=== PATIENT | female | born 1945 | race Caucasian/White ===

== ENCOUNTER 2020-07-28 11:22 | Outpatient (REF) | payer MEDICARE, SELFPAY ==
[2020-07-28 13:11] LABS: Anion Gap 12 (12-20); Blood Urea Nitrogen 15 mg/dL (9-16); Calcium 9.7 mg/dL (8.4-10.2); Carbon Dioxide 29 mmol/L (22-29); Chloride 103 mmol/L (96-108); Estimated Glomerular Filt Rate > 60; Glucose Random 84 mg/dL (60-115); Potassium 4.2 mmol/l (3.3-5.1); Sodium 140 mmol/L (135-145)
[2020-07-28 13:33] LABS: Thyroid Stimulating Hormone 3.39 mIU/mL (0.32-4.0); Vitamin D 25-OH Total 54.8 ng/mL (>30)
[2020-07-28 14:37] LABS: Folate 18.9 ng/mL (> or = 4.0); Vitamin B12 318 pg/mL (200-900)
== END 2020-07-28 11:23 | disposition home or self-care (01) ==
LOC: HO.LABR 11:22
PROVIDERS: PCP Internal Medicine; Visit Provider Psychiatry & Neurology Neurology
DX: G31.84 Mild cognitive impairment of uncertain or unknown etiology (principal)
CPT/HCPCS: 36415; 80048; 82306; 82607; 82746; 84443

== ENCOUNTER 2022-02-07 10:00 | Outpatient (RCR) | payer OTHER, SELFPAY | END 2022-02-07 10:50 | disposition home or self-care (01) | LOC: HO.PT 10:00 | PROVIDERS: PCP Internal Medicine; Visit Provider Podiatrist Foot & Ankle Surgery | DX: S99.921D Unspecified injury of right foot, subsequent encounter (principal); Z98.890 Other specified postprocedural states | CPT/HCPCS: 97110; 97112; 97162 ==

== ENCOUNTER 2022-04-15 12:10 | Outpatient (REF) | payer OTHER, SELFPAY ==
[2022-04-15 12:32] VITALS: BP 145/67; PULSE 81; RESP 16; TEMP 36.3; O2SAT 100
[2022-04-15 12:33] VITALS: BMI 28.3
== END 2022-04-15 12:11 | disposition home or self-care (01) ==
LOC: HO.MS 12:10
PROVIDERS: Visit Provider Ophthalmology
PROC: (CPT 66821; principal; 2022-04-15 13:20)
DX: H26.491 Other secondary cataract, right eye (principal); Z96.1 Presence of intraocular lens; H11.003 Unspecified pterygium of eye, bilateral; H04.123 Dry eye syndrome of bilateral lacrimal glands; I10 Essential (primary) hypertension; E78.00 Pure hypercholesterolemia, unspecified; E03.9 Hypothyroidism, unspecified; F03.90 Unspecified dementia, unspecified severity, without behavioral disturbance, psychotic disturbance, mood disturbance, and anxiety; J30.2 Other seasonal allergic rhinitis; Z79.51 Long term (current) use of inhaled steroids; Z79.899 Other long term (current) drug therapy
CPT/HCPCS: 66821

== ENCOUNTER 2024-01-09 10:25 | Outpatient (REF) | payer MEDICARE, SELFPAY | END 2024-01-09 10:26 | disposition home or self-care (01) | LOC: HO.SH 10:25 | PROVIDERS: PCP Internal Medicine; Visit Provider Internal Medicine | DX: Z01.118 Encounter for examination of ears and hearing with other abnormal findings (principal); H90.A21 Sensorineural hearing loss, unilateral, right ear, with restricted hearing on the contralateral side | CPT/HCPCS: 92557; 92567 ==

== ENCOUNTER 2025-06-01 13:43 | Outpatient (AMB) | payer MEDICARE, MEDICAID, SELFPAY ==
--- NOTE | 2025-06-01 14:11 | MHC.OFFVIS ---
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 Memory was about the same, forgetful at times and needed some reminders, like to take medications and to bathe. 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 She enjoyed being outdoors, planting and gardening. No falls. Sleep was okay. Mood was up and down. She could get upset at times, especially when reminded of something or told what to do. She did not want to leave the house much and was not interested in going to day program. More dependent on sister (Leah). Has cameras in the house. Does not try to wander. She has been living with her younger sister since 1991. Her sister noted she was more forgetful beginning around 2018. She gets agitated if she is told to bathe or cut nails. She has not had sense of smell since around [id number] and therefore that becomes a safety issue. No bladder control problems. No history of falls, balance problems, or head trauma. In the past, she was treated for overactive thyroid with radiation and is on replacement therapy. Occasionally screams at night and has no recall, goes back to sleep. [facility] Medical History (Updated 06/01/25 @ 14:16 by Katy Ashraf CNP) Hypertension MCI (mild cognitive impairment) Review of Systems Const Denies chills, Denies daytime sleepiness, Denies difficulty sleeping, Denies fatigue, Denies fever(s), Denies frequent falls, Denies headache(s), Denies increased appetite, Denies poor appetite, Denies snoring, Denies weakness, Denies weight gain and Denies weight loss Eyes Denies loss of vision ENT Denies vertigo, Denies dizziness, Denies headache(s) and Denies neck pain Card Denies chest pain at rest, Denies chest pain with activity, Denies syncope, Denies leg edema, Denies palpitations, Denies dyspnea and Denies dyspnea on exertion Resp Denies cough, Denies dyspnea, Denies dyspnea on exertion and Denies snoring GI Denies abdominal pain, Denies constipation, Denies heartburn, Denies diarrhea and Denies nausea Denies urinary frequency, Denies urinary incontinence and Denies urinary urgency Musc Denies abnormal gait, Denies back pain, Denies myalgias, Denies arthralgias, Denies neck pain, Denies numbness and Denies tingling Neuro Denies abnormal gait, Denies vertigo, Denies dizziness, Denies syncope, Denies frequent falls, Denies headache(s), Denies lack of coordination, Denies loss of vision, Reports memory loss, Denies numbness, Denies Other visual disturbances, Denies restless legs, Denies seizure-like activity, Denies tingling, Denies paresthesias, Denies tremor(s) and Denies weakness Psych Denies anxiety, Denies depression, Denies auditory hallucinations, Reports memory loss and Denies visual hallucinations Endo Denies fatigue and Denies palpitations Physical Exam Const Other: General Appearance:? normal, in no acute distress. Heart:? S1, S2 normal, no murmurs. Lungs:? clear anteriorly and posteriorly. Musculoskeletal:? normal. Extremities:? no edema. Psych:? alert, as below. Neuro Other: Abnormal Neurological Findings:?MMSE 19/30.? Mental Status: alert, as below. Cranial Nerves: Pupils are equal, round, and reactive to light. External ocular muscles are intact. Visual maldonado are full, no ptosis. Face is symmetrical, no facial weakness or droop. Facial sensations are normal. Tongue protrudes in midline. Palate elevates symmetrically. Shoulder shrugging is normal Motor Examination: Normal muscle tone, bulk and strength. No atrophy or fasciculations. No drift of the extended upper extremities. DTR 2+. Plantars are flexor. Sensory Exam: Normal light touch, temperature, pinprick, vibration, and joint-position sensations. Rhomberg sign is absent. Coordination: No ataxia. No titubation. Gait Exam: Within normal limits. Cerebellar Signs: [id number] is okay. Extrapyramidal System: No tremor, rigidity with normal facial expressions. No bradykinesia. No bradyphrenia. Normal arm swing and posture. No propulsion or retropulsion. Speech: Normal. MMSE Level of Consciousness: Alert. Orientation: Knows correct month and season. Does not know year, date, or day. Knows correct city and state. Does not know county. Knows correct location. Does not know floor. Registration: Able to register 3 objects. Attention: Unable to do serial 7's (has 2nd grade education). Recall: Able to recall 2 out of 3 objects. Language: Normal spontaneous speech, fluency, repetition, naming, comprehension, reading, and writing. Total Score: 19/30. Assessment & Plan Assessment & Plan (1) Alzheimer dementia: Code(s): G30.9 - Alzheimer's disease, unspecified; F02.80 - Dementia in other diseases classified elsewhere, unspecified severity, without behavioral disturbance, psychotic disturbance, mood disturbance, and anxiety Category: Medical Qualifiers: Alzheimer's disease onset: unspecified onset Dementia severity: unspecified severity Dementia behavioral or psychological symptom: with mood disturbance Qualified Code(s): G30.9 - Alzheimer's disease, unspecified; F02.83 - Dementia in other diseases classified elsewhere, unspecified severity, with mood disturbance Plan: Continue memantine 10mg 1 tablet twice a day. Increase sertraline 50mg 1 tablet daily. Stay physically and socially active. Plan Meds tried: donepezil Medications: New sertraline 50 mg PO DAILY 90 tabs 1RF 90 days memantine 10 mg PO BID 180 tabs 1RF 90 days Discontinued memantine Discontinued Reason: Order 10 mg PO BID Coding Level of Care Code Est Pt Level 4 (11543) Diagnoses Alzheimer's dementia with mood disturbance, unspecified dementia severity, unspecified timing of dementia onset G30.9; F02.83 Alzheimer's disease onset: unspecified onset Dementia severity: unspecified severity Dementia behavioral or psychological symptom: with mood disturbance
--- OUTSIDE RECORDS SUMMARY | 2025-06-01 14:11 | XMS_ITS | Clinical Summary ---
Author Organization [facility] [address] [facility] Address [address] [place] [address] Phone Care Team Providers Care Neurosurgery Spine Physician Name Role Phone Sadia Ferreira MD Primary Care Prov ider Allergies Active Allergy Reactions Criticality Noted Date Comments Other 01/24/2022 Seasonal Allergies Medications acetaminophen (TYLENOL) 325 mg tablet Take 2 tablets (650 mg total) by mouth every 6 (six) hours if needed for mild pain or moderate pain (for up to 10 days.). 07/26/20 21 Active fluticasone propionate (FLONASE) 50 mcg/actuation nasal spray 2 Sprays by Each Nare route daily. 01/25/20 22 Active memantine (NAMENDA) 10 mg tablet 08/21/20 21 Active docusate sodium (Colace) 100 mg capsule Take 1 capsule (100 mg total) by mouth 2 (two) times a day. 60 each 09/08/20 24 Active polyethylene glycol (MIRALAX) 17 gram packet Take 17 g by mouth 1 (one) time each day. 510 g 09/08/20 24 025 Active senna-docusate (PERICOLACE) 8.6-50 mg per tablet Take 1 tablet by mouth 1 (one) time each day. 30 each 09/08/20 24 025 Active pantoprazole (PROTONIX) 40 mg EC tablet Take 1 tablet (40 mg total) by mouth 2 (two) times a day. Take thyroid medication first in am. Wait 30 mins and then take on empty stomach, wait 30 mins and then eat to activate the medication- before breakfast and supper 60 each 09/08/20 24 Active levothyroxine (SYNTHROID, LEVOTHROID) 125 mcg tablet Take 0.5 tablets (62.5 mcg total) by mouth 1 (one) time each day. 45 each 05/19/20 25 026 Active metoprolol tartrate (LOPRESSOR) 25 mg tablet TAKE ONE TABLET BY MOUTH TWICE DAILY (ic lopressor) 180 tablet 05/19/20 25 Active simvastatin (ZOCOR) 40 mg tablet Take 1 tablet (40 mg total) by mouth at bedtime. 90 each 05/19/20 026 Active cholecalcifero l (VITAMIN D-3) 5,000 Units tablet Take 1 tablet (5,000 Units total) by mouth 1 (one) time each day. 90 each 05/19/20 026 Active cholecalcifero l (VITAMIN D-3) 5,000 Units tablet Take 1 tablet (5,000 Units total) by mouth 1 (one) time each day. 10/06/20 025 Discontinued(Re order) famotidine (PEPCID) 20 mg tablet Take 1 tablet (20 mg total) by mouth 2 (two) times a day. 10/06/20 025 Discontinued(Th erapy completed) simvastatin (ZOCOR) 40 mg tablet Take 1 tablet (40 mg total) by mouth at bedtime. at bedtime 90 tablet 02/16/20 025 Discontinued levothyroxine (SYNTHROID, LEVOTHROID) 125 mcg tablet Take 0.5 tablets (62.5 mcg total) by mouth 1 (one) time each day. 45 tablet 02/16/20 025 Discontinued metoprolol tartrate (LOPRESSOR) 25 mg tablet TAKE ONE TABLET BY MOUTH TWICE DAILY (ic lopressor) 180 tablet 02/16/20 25 025 Discontinued metoprolol tartrate (LOPRESSOR) 25 mg tablet TAKE ONE TABLET BY MOUTH TWICE DAILY (ic lopressor) 180 tablet 05/11/20 25 025 Discontinued(Re order) levothyroxine (SYNTHROID, LEVOTHROID) 125 mcg tablet Take 0.5 tablets (62.5 mcg total) by mouth 1 (one) time each day. 45 tablet 05/11/20 25 025 Discontinued(Re order) simvastatin (ZOCOR) 40 mg tablet TAKE 1 TABLET (40 MG TOTAL) BY MOUTH AT BEDTIME. 90 tablet 05/11/20 25 025 Discontinued(Re order) Active Problems Problem Noted Date Diagnosed Date Stage 3a chronic kidney disease ([facility] V24, CM S/[facility] V28) 11/18/2024 Gastroesophageal reflux disease 07/30/2024 Assessment & Plan (11/18/2024 9:46 AM EST): Orders: CBC and differential; Future Mild cognitive impairment with memory loss 12/22 Assessment & Plan (11/18/2024 9:46 AM EST): Orders: CBC and differential; Future Allergic rhinitis 05/17/2013 Heartburn 06/11/2012 Hypothyroidism 08/13/2010 Assessment & Plan (05/19/2025 10:14 AM EDT): On levothyroxine 62.5 mcg a day, last TSH wnl. Will continue same dose. Orders: CBC and differential; Future Comprehensive metabolic panel; Future Lipid panel with reflex to direct LDL; Future Thyroid stimulating hormone with reflex to free t4 and free t3; Future Assessment & Plan (11/18/2024 9:46 AM EST): Orders: CBC and differential; Future Thyroid stimulating hormone; Future Vitamin deficiency 11/02/2009 Depression 10/19/2009 HTN (hypertension) 10/19/2009 Assessment & Plan (05/19/2025 10:08 AM EDT): Blood pressure is well controlled, today 123/60, continue metoprolol 25 mg twice daily. Orders: CBC and differential; Future Comprehensive metabolic panel; Future Lipid panel with reflex to direct LDL; Future Thyroid stimulating hormone with reflex to free t4 and free t3; Future Assessment & Plan (11/18/2024 9:46 AM EST): Orders: CBC and differential; Future Hyperlipidemia 10/19/2009 Overview (07/30/2024): Mild elevation of LFTs. Statin was held for 2 weeks and liver function testing returned to normal. Restarted on lower dose. Assessment & Plan (05/19/2025 10:14 AM EDT): On simvastatin for high cholesterol, last LDL was 83. We will continue same medication. Encouraged to follow a low fat diet. Orders: CBC and differential; Future Comprehensive metabolic panel; Future Lipid panel with reflex to direct LDL; Future Thyroid stimulating hormone with reflex to free t4 and free t3; Future Assessment & Plan (11/18/2024 9:46 AM EST): Orders: Comprehensive metabolic panel; Future CBC and differential; Future Lipid panel with reflex to direct LDL; Future Encounters Date Type Department Care Team Description 05/19/2025 9:30 AM EDT Office Visit Adult Medicine [address] [phone] Sadia Madsen MD Primary hypertension (Primary Dx); Hyperlipidemia, unspecified hyperlipidemia type; Hypothyroidism, unspecified type from Last 3 Months Immunizations Name Administration Dates Next Due Influenza Quadravalent, MDCK , 0.5ml, preservative free (Flucelvax) 6mo and older 10/06/2023 Influenza Quadravalent, MDCK , 0.5ml, with preservative (Flucelvax) 6mo and older 09/17/2021,07/28/2017 Influenza trivalent, 0.5mL ( Fluzone High-dose) 65yo and older 07/15/2022,09/29/2020,08/04/2019,07/17 Influenza trivalent, with pr eservative (Fluzone; Afluria) 6mo and older 09/10/2016,11/18/2012,10/25/2011,08/10 Influenza, Unspecified 08/26/2021 Pneumococcal conjugate 13 va lent (Prevnar 13, PCV13) 2mo and older 09/10/2016 Pneumococcal polysaccharide 23 valent (Pneumovax 23) 2yo and older 11/01/2009 Td Tetanus diptheria (Tdvax) 7yo and older 02/20/2021 Tdap Tetanus diptheria acell ular pertussis (Boostrix; Adacel) 7yo and older 11/01/2009 Surgical History Surgery Date Site/Laterality Comments COLONOSCOPY 12/19/2009 PROCEDURE: VT COLONOSCOPY FLX DX W/COLLJ SPEC WHEN PFRMD; COMMENT: Up to cecum, good preparation, normal colon exam Medical History Medical History Date Comments Hypercholesteremia DX:Hyperchole steremia Depression DX:Depression; C OMMENT: previously on Prozac. HTN (hypertension) DX:HTN (hyper tension) Hyperthyroidism DX:Hyperthyroidi sm; COMMENT: s/p radiactive ablation Gastroesophageal reflux disease 07/06/2024 DX:Gastroesophageal reflux disease Family History Medical History Relation Name Comments Diabetes Brother 1 kidney failure Diabetes Brother 2 kidney failure, CAD Leukemia Brother 3 Lung disease Brother 4 Coronary artery disease Brother 5 Glaucoma Father brain tumor Diabetes Maternal Grandfather with co mplications Asthma Maternal Grandmother Diabetes Mother Breast cancer Other maternal aunt No Known Problems Sister x 3 health y sisters Relation Name Status Comments Brother 1 Brother 2 Brother 3 Brother 4 Brother 5 Alive Father Maternal Grandfather Maternal Grandmother Mother Other Sister Alive Social History Tobacco Use Types Packs/Day Years Used Date Smoking Tobacco: Never Smokeless Tobacco: Never Tobacco Cessation:Counseling Given: Not Answered Alcohol Use Standard Drinks/Week Comments No 0 (1 standard drink = 0.6 oz pur e alcohol) Comments No Sex and Gender Information Value Date Recorded Sex Assigned at Not on file Legal Sex Female 2:11 AM EST Gender Identity Not on file Sexual Orientation Not on file Obstetrics History Para Term AB IAB SAB Ectopic Multiple Livin g Live Births 0 0 0 Last Filed Vital Signs Vital Sign Reading Time Taken Comments Blood Pressure 123/60 05/19/2025 9:37 AM EDT Pulse 72 05/19/2025 9:37 AM EDT Temperature 36.1 C (97 F) 05/19/2025 9:37 AM EDT Respiratory Rate 16 05/19/2025 9:37 AM EDT Oxygen Saturation 96% 09/08/2024 10:14 AM EST Inhaled Oxygen Concentration - - Weight 71.2 kg (157 lb) 05/19/2025 9:37 AM EDT Height 160 cm (5' 3 ) 11/18/2024 9:07 AM EST Body Mass Index 27.81 11/18/2024 9:07 AM EST Plan of Treatment Upcoming Encounters Date Type Department Care Team (Late st Contact Info) Description 12/19/2025 11:30 AM EST Office Visit Adult Medicine [facility] [address] [place] [address] Sadia Ferreira MD [address] [place] [phone] Health Maintenance Due Date Last Done Comments Zoster Vaccines (1 of 2) 1964 RSV Immunization Adult Patients (1 - 1-dose 75+ series) 2019 Influenza Vaccine (#1) 2025 , 10/06/2023, 07/15/2022, Additional history exists Falls Risk Assessment 11/18/2025 11/18/2024, 024 Hypertension/CHF/CAD Annual BMP Blood Test 11/18/2025 11/18/2024, 07/06/2024 Medicare Annual Wellness Visit 11/18/2025 11/18/2024 Social Influencers of Health Screening 11/18/2025 11/18/2024 Osteoporosis Screening (Bone Density Screening) 11/17/2029 11/17/2024, 08/18/2018 Cholesterol Screening (Lipid Panel) 11/18/2029 11/18/2024, 07/06/2024, 07/06/2024 DTaP,Tdap,and Td Vaccines (3 - Td or Tdap) 02/20/2031 02/20/2021, 11/01/2009 Pneumococcal Vaccine: 50+ Years Completed 09/10/2016, 11/01/2009 COVID-19 Vaccine Discontinued 08/21/2021, 10/2020, 12/04/2020 Depression Screening Completed 11/18/2024, 10/06/20 23 HIB Vaccines Aged Out No longer eligi ble based on patient's age to complete this topic HPV Vaccines Aged Out No longer eligi ble based on patient's age to complete this topic Hepatitis A Vaccines Aged Out No long er eligible based on patient's age to complete this topic Hepatitis B Vaccines Aged Out No long er eligible based on patient's age to complete this topic IPV Vaccines Aged Out No longer eligi ble based on patient's age to complete this topic MMR Vaccines Aged Out No longer eligi ble based on patient's age to complete this topic Meningococcal ACWY Vaccine Aged Out N o longer eligible based on patient's age to complete this topic Meningococcal B Vaccine Aged Out No l onger eligible based on patient's age to complete this topic RSV Immunization Patients Under 20 months Aged Out No longer eligible based on patient's age to complete this topic Varicella Vaccines Aged Out No longer eligible based on patient's age to complete this topic Procedures Procedure Name Priority Date/Time Associated Diagnosis Comments COMPREHENSIVE METABOLIC PANEL Routine 11/18/2024 10:16 AM EST Adult general medical examination Hyperlipidemia, unspecified hyperlipidemia type LIPID PANEL WITH REFLEX TO DIRECT LDL Routine 11/18/2024 10:16 AM EST Adult general medical examination Hyperlipidemia, unspecified hyperlipidemia type BD BONE DENSITY DXA AXIAL SKELETON Routine 11/17/2024 10:14 AM EST Asymptomatic menopausal state FALLS RISK ASSESSMENT Routine 07/06/2024 DEPRESSION SCREENING Routine 10/06/2023 from Last 3 Months or Most Recently Relevant to Health Maintenance Results * Lipid panel with reflex to direct LDL (11/18/2024 10:16 AM EST) Cholesterol 182 0 - 200 mg/dL LAB CHEMISTRY METHOD 11/18/2024 12:08 PM EST [facility] Triglycerides 108 0 - 150 mg/dL LAB CHEMISTRY METHOD 11/18/2024 12:08 PM EST [facility] HDL 77 >=40 mg/dL LAB CHEMISTRY METHOD 11/18/2024 12:08 PM EST [facility] LDL Calculated 83 0 - 100 mg/dL LAB CHEMISTRY METHOD 11/18/2024 12:08 PM EST [facility] VLDL Cholesterol Dieter 21.6 mg/dL LAB CHEMISTRY METHOD 11/18/2024 12:08 PM [facility] Non HDL Chol. (LDL+VLDL) 105 <145 mg/dL LAB CHEMISTRY METHOD 11/18/2024 12:08 PM [facility] Chol/HDL Ratio 2.4 0.0 - 4.4 LAB CHEMISTRY METHOD 11/18/2024 12:08 PM [facility] Blood Venous blood specimen / Unknown Venipuncture / Unknown 11/18/2024 10:16 AM EST 11/18/2024 10:16 AM EST Zita RAE LAB BLOOD ORDERABLES Final Resul t [facility] [address] [place] [address], [place] [phone] * (ABNORMAL) Comprehensive metabolic panel (11/18/2024 10:16 AM EST) Sodium 138 133 - 145 mmol/L LAB CHEMISTRY METHOD 11/18/2024 12:08 PM [facility] Potassium 4.5 3.5 - 5.5 mmol/L LAB CHEMISTRY METHOD 11/18/2024 12:08 PM [facility] Chloride 106 96 - 110 mmol/L LAB CHEMISTRY METHOD 11/18/2024 12:08 PM [facility] CO2 29 21 - 32 mmol/L LAB CHEMISTRY METHOD 11/18/2024 12:08 PM [facility] Anion Gap 3 3 - 11 LAB CHEMISTRY METHOD 11/18/2024 12:08 PM [facility] Glucose 94 70 - 100 mg/dL LAB CHEMISTRY METHOD 11/18/2024 12:08 PM [facility] BUN 22 5 - 25 mg/dL LAB CHEMISTRY METHOD 11/18/2024 12:08 PM [facility] Creatinine 1.13(H) 0.50 - 1.10 mg/dL LAB CHEMISTRY METHOD 11/18/2024 12:08 PM [facility] eGFR 49(L) >=60 mL/min/1. 73m2 LAB CHEMISTRY METHOD 11/18/2024 12:08 PM [facility] Comment:Calculation based on the Chronic Kidney Disease Epidemiology Collaboration (CKD-EPI) equation refit without adjustment for race. BUN/Creatinine Ratio 19.5 LAB CHEMISTRY METHOD 11/18/2024 12:08 PM [facility] Calcium 9.4 8.5 - 10.5 mg/dL LAB CHEMISTRY METHOD 11/18/2024 12:08 PM [facility] AST (SGOT) 24 10 - 42 unit/L LAB CHEMISTRY METHOD 11/18/2024 12:08 PM [facility] ALT (SGPT) 25 10 - 60 unit/L LAB CHEMISTRY METHOD 11/18/2024 12:08 PM [facility] Alkaline Phosphatase 75 42 - 121 unit/L LAB CHEMISTRY METHOD 11/18/2024 12:08 PM [facility] Total Protein 7.6 6.0 - 8.0 g/dL LAB CHEMISTRY METHOD 11/18/2024 12:08 PM [facility] Albumin 4.1 3.2 - 5.0 g/dL LAB CHEMISTRY METHOD 11/18/2024 12:08 PM [facility] Total Bilirubin 0.4 0.0 - 1.4 mg/dL LAB CHEMISTRY METHOD 11/18/2024 12:08 PM [facility] Blood Venous blood specimen / Unknown Venipuncture / Unknown 11/18/2024 10:16 AM EST 11/18/2024 10:16 AM EST us Zita RAE LAB BLOOD ORDERABLES Final Resul t [facility] [address] [place] [address], * BD Bone Density DXA Axial Skeleton (11/17/2024 10:14 AM EST) Anatomical Region Laterality Modality Wrist, Hip, L-spine Bone Densito metry 11/17/2024 1:34 PM EST Impressions 11/17/2024 1:37 PM EST Osteopenia Reference Information: The T-score is the number of standard deviations above or below the standard which is normal for young adults at their peak bone mineral density. The World Health Organization (WHO) interprets the T-scores as follows: At or above -1 SD Normal bone density Between -1 and -2.5 SD Osteopenia At or below -2.5 SD Osteoporosis -------- FINAL REPORT -------- Dictated By: Leon Negron Dictated Date: 11/17/2024 13:34 ET Assigned Physician: Leon Negron Reviewed and Electronically Signed By: Leon Negron Signed Date: 11/17/2024 13:37 ET Workstation ID: [id number] Transcribed By: Self Edit Transcribed Date: 11/17/2024 13:34 ET Narrative 11/17/2024 1:37 PM EST STUDY: DUAL ENERGY X-RAY ABSORPTIOMETRY / DXA REASON FOR EXAM: Female, 79 years old Z78.0 TECHNIQUE: Bone Mineral Density (BMD) measurements of the lumbar spine and left hip were obtained using [employer] W (S/N [id number]). COMPARISON: August 18, 2018 FINDINGS: L1-L4 BMD: 0.893 g/cm2 L1-L4 T score: -1.4. This corresponds to osteopenia. This represents a 6.0* % increase in bone density compared with prior exam from August 18, 2018. Left femoral neck BMD: 0.671 g/cm2 Left femoral neck T score: -1.6. This corresponds to osteopenia. Left total hip BMD: 0.767 g/cm2 Left total hip T score: -1.4. This corresponds to osteopenia. This represents a -0.1 % decrease in bone density compared with prior exam from August 18, 2018. * - Indicates a statistically significant change. FRAX score: 10 year risk of major osteoporotic fracture 8.3%, 10 year risk of hip fracture 2.1% Procedure Note Leon Negron MD - 11/17/2024 STUDY: DUAL ENERGY X-RAY ABSORPTIOMETRY / DXA REASON FOR EXAM: Female, 79 years old Z78.0 TECHNIQUE: Bone Mineral Density (BMD) measurements of the lumbar spineand left hip were obtained using [employer] W (S/N [id number]). COMPARISON: August 18, 2018 FINDINGS: L1-L4 BMD: 0.893 g/cm2 L1-L4 T score: -1.4. This corresponds to osteopenia. This represents a 6.0* % increase in bone density compared with prior examfrom August 18, 2018. Left femoral neck BMD: 0.671 g/cm2 Left femoral neck T score: -1.6. This corresponds to osteopenia. Left total hip BMD: 0.767 g/cm2 Left total hip T score: -1.4. This corresponds to osteopenia. This represents a -0.1 % decrease in bone density compared with prior examfrom August 18, 2018. * - Indicates a statistically significant change. FRAX score: 10 year risk of major osteoporotic fracture 8.3%, 10 year riskof hip fracture 2.1% IMPRESSION: Osteopenia Reference Information: The T-score is the number of standard deviations above or below thestandard which is normal for young adults at their peak bone mineraldensity. The World Health Organization (WHO) interprets the T-scores asfollows: At or above -1 SD Normal bone density Between -1 and -2.5 SD Osteopenia At or below -2.5 SD Osteoporosis -------- FINAL REPORT -------- Dictated By: Leon Negron Dictated Date: 11/17/2024 13:34 ET Assigned Physician: Leon Negron Reviewed and Electronically Signed By: Leon Negron Signed Date: 11/17/2024 13:37 ET Workstation ID: [id number] Transcribed By: Self Edit Transcribed Date: 11/17/2024 13:34 ET Stephanie RAE IMG DXA PROCEDURES Final Result * Falls Risk Assessment (07/06/2024) Falls Risk Assessment Abstracted Historical Provider MD HEALTH MAINTENANCE Final Result * Depression Screening (10/06/2023) Depression Screening Abstracted Historical Provider HEALTH MAINTENANCE Final Result from Last 3 Months or Most Recently Relevant to Health Maintenance [place] [address] [employer] [employer] Care Teams Neurosurgery Spine Physician Relationship Specialty Start Date End Date Sadia Ferreira MD [address] [place] [address] [phone] PCP - General Internal Medicine 05/03/22
== END 2025-06-01 14:36 | disposition home or self-care (01) ==
LOC: HO.HSM 13:44
PROVIDERS: PCP Internal Medicine; Referring Provider Internal Medicine; Visit Provider Registered Nurse
DX: G30.9 Alzheimer's disease, unspecified (principal); F02.83 Dementia in other diseases classified elsewhere, unspecified severity, with mood disturbance
CPT/HCPCS: 99214

== ENCOUNTER → 2025-06-01 13:43 | Outpatient (BNVA) | payer MEDICARE, SELFPAY | PROVIDERS: PCP Internal Medicine; Referring Provider Internal Medicine; Visit Provider Registered Nurse | DX: G30.9 Alzheimer's disease, unspecified (principal); F02.83 Dementia in other diseases classified elsewhere, unspecified severity, with mood disturbance | CPT/HCPCS: 99212 ==

== ENCOUNTER 2025-08-31 13:36 | Outpatient (AMB) | payer MEDICARE, SELFPAY ==
--- NOTE | 2025-08-31 13:44 | A.OFFVIS_ITS ---
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 Memory was about the same, forgetful at times and needed some reminders. She sometimes needed reminders to take medications and to bathe. 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 No falls. Mood was better with increased dose of sertraline. She could get upset at times if she was told what to do. Sleep was okay. She went to [place] with her sister to visit family and they were going to [place] for [place]. More dependent on sister (Leah). Has cameras in the house. Does not try to wander. She has been living with her younger sister since 1991. Her sister noted she was more forgetful beginning around 2018. She gets agitated if she is told to bathe or cut nails. She has not had sense of smell since around [id number] and therefore that becomes a safety issue. No bladder control problems. No history of falls, balance problems, or head trauma. In the past, she was treated for overactive thyroid with radiation and is on replacement therapy. Occasionally screams at night and has no recall, goes back to sleep. [facility] Medical History (Updated 06/01/25 @ 14:16 by Katy Ashraf CNP) Hypertension MCI (mild cognitive impairment) Review of Systems Const Denies chills, Denies daytime sleepiness, Denies difficulty sleeping, Denies fatigue, Denies fever(s), Denies frequent falls, Denies headache(s), Denies increased appetite, Denies poor appetite, Denies snoring, Denies weakness, Denies weight gain and Denies weight loss Eyes Denies loss of vision ENT Denies vertigo, Denies dizziness, Denies headache(s) and Denies neck pain Card Denies chest pain at rest, Denies chest pain with activity, Denies syncope, Denies leg edema, Denies palpitations, Denies dyspnea and Denies dyspnea on exertion Resp Denies cough, Denies dyspnea, Denies dyspnea on exertion and Denies snoring GI Denies abdominal pain, Denies constipation, Denies heartburn, Denies diarrhea and Denies nausea Denies urinary frequency, Denies urinary incontinence and Denies urinary urgency Musc Denies abnormal gait, Denies back pain, Denies myalgias, Denies arthralgias, Denies neck pain, Denies numbness and Denies tingling Neuro Denies abnormal gait, Denies vertigo, Denies dizziness, Denies syncope, Denies frequent falls, Denies headache(s), Denies lack of coordination, Denies loss of vision, Reports memory loss, Denies numbness, Denies Other visual disturbances, Denies restless legs, Denies seizure-like activity, Denies tingling, Denies paresthesias, Denies tremor(s) and Denies weakness Psych Denies anxiety, Denies depression, Denies auditory hallucinations, Reports m jazmyne loss and Denies visual hallucinations Endo Denies fatigue and Denies palpitations Physical Exam Const Other: General Appearance:? normal, in no acute distress. Heart:? S1, S2 normal, no murmurs. Lungs:? clear anteriorly and posteriorly. Musculoskeletal:? normal. Extremities:? no edema. Psych:? alert, as below. Neuro Other: Abnormal Neurological Findings:?MMSE 19/30.? Mental Status: alert, as below. Cranial Nerves: Pupils are equal, round, and reactive to light. External ocular muscles are intact. Visual maldonado are full, no ptosis. Face is symmetrical, no facial weakness or droop. Facial sensations are normal. Tongue protrudes in midline. Palate elevates symmetrically. Shoulder shrugging is normal Motor Examination: Normal muscle tone, bulk and strength. No atrophy or fasciculations. No drift of the extended upper extremities. DTR 2+. Plantars are flexor. Sensory Exam: Normal light touch, temperature, pinprick, vibration, and joint-position sensations. Rhomberg sign is absent. Coordination: No ataxia. No titubation. Gait Exam: Within normal limits. Cerebellar Signs: [id number] is okay. Extrapyramidal System: No tremor, rigidity with normal facial expressions. No bradykinesia. No bradyphrenia. Normal arm swing and posture. No propulsion or retropulsion. Speech: Normal. MMSE Level of Consciousness: Alert. Orientation: Knows correct month and season. Does not know year, date, or day. Knows correct city and state. Does not know county. Knows correct location. Does not know floor. Registration: Able to register 3 objects. Attention: Unable to do serial 7's (has 2nd grade education). Recall: Able to recall 2 out of 3 objects. Language: Normal spontaneous speech, fluency, repetition, naming, comprehension, reading, and writing. Total Score: 19/30. Results Reviewed Results Reviewed: 07/28/20 EEG- [facility] normal CT brain not approved by insurance Assessment & Plan Assessment & Plan (1) Alzheimer dementia: Code(s): G30.9 - Alzheimer's disease, unspecified; F02.80 - Dementia in other diseases classified elsewhere, unspecified severity, without behavioral disturbance, psychotic disturbance, mood disturbance, and anxiety Category: Medical Qualifiers: Alzheimer's disease onset: unspecified onset Dementia severity: unspecified severity Dementia behavioral or psychological symptom: with mood disturbance Qualified Code(s): G30.9 - Alzheimer's disease, unspecified; F02.83 - Dementia in other diseases classified elsewhere, unspecified severity, with mood disturbance Plan: Continue memantine 10mg 1 tablet twice a day. Continue sertraline 50mg 1 tablet daily. Stay physically and socially active. Plan Meds tried: donepezil Coding Level of Care Code Est Pt Level 4 (23280) Diagnoses Alzheimer's dementia with mood disturbance, unspecified dementia severity, unspecified timing of dementia onset G30.9; F02.83 Alzheimer's disease onset: unspecified onset Dementia severity: unspecified severity Dementia behavioral or psychological symptom: with mood disturbance
--- OUTSIDE RECORDS SUMMARY | 2025-08-31 16:30 | XMS_ITS | Data Portability ---
Author Organization [facility], Allergy Address [address] [place] [phone] Care Team Providers Care Assistant Attorney General Name Role Phone SINGH ARDON Primary Care Provider Assessment Encounter Date Assessment Date Assessment LastModified by Organization Details LastModified Time 07/23/2024 07/23/2024 Examination shows no evidence of middle ear fluid. 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 Options of exploration with surgical intervention or hearing aid discussed. She would like to try the hearing aid first. [email or web address] Not available 07/23/2024 16:06:04 Plan of Treatment Reminders Order Date Submit Date Provider Last Modified By Organization Details Last Modified Time Details Appointments None record ed. Lab None record ed. Referral None record ed. Procedures None record ed. Surgeries None record ed. Imaging None record ed. Medication Orders None record ed. Patient TargetsNo targets recorded. Patient InstructionsNo instructions recorded. Reason for Referral None Reported. Results Created Date Observation Date Name Description Value Unit Range Abnormal Flag Note LastModifiedBy Organization Detail LastModifiedTime 07/26/2001/09/2024 audio gram No observ ation record ed. [email or web address] Not Available 06/29 13:16:35 07/26/20 audio gram No observ ation record ed. BARCODE Not Available 2023 14:48:06 Result Notes None recorded. 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 15:50:59 Problem Notes None recorded. Procedures Surgical History Date Name Laterality Status Provider Name and Address Organization Details Recorded Time Comp Audio with Tymps & Reflexes - 40517 & 05920 completed Amairani Emanuel MA - [facility] 07/23/2024 15:50:45 Imaging Results None recorded. Procedure Notes None recorded. Medical Equipment None Reported. Allergies No known drug allergies Medications Name Sig Start Date Stop Date Status Note LastModified by Organization Details LastModified Time vitamin d3 5000 unit tabs active Not Available Not Available No t Available simvastatin 40 mg tablet active Not Available Not Available No t Available famotidine 20 mg tablet active Not Available Not Available Not Available benzonatate 100 mg capsule 07/23 completed Not Available Not Available Not Available levothyroxine 125 mcg tablet active Not Available Not Availab le Not Available doxycycline hyclate 100 mg tablet 07/23 completed Not Available Not Available Not Available memantine 10 mg tablet active Not Available Not Available Not Available metoprolol tartrate 25 mg tablet active Not Available Not Available Not Available cholecalciferol (vitamin D3) 125 mcg (5,000 unit) tablet 07/23 completed Not Available Not Available Not Available Vitals Date Recorded Body height Body weight Provider Name and Address Organization Details Last Updated DateTime 07/23/2024 165.1 cm 16963.82 g Alia Ahuja MA - [facility] 07/23/2024 15:03:11 Social History None recorded. Functional Status None recorded. Mental Status None recorded. Family History Nothing Reported. Medical History Condition Response Thyroid Problems Y Hypertension Y GERD/Reflux Y High Cholesterol Y Gynecological HistoryNo gynecological history recorded. Obstetrics History GPAL:G 0 P 0 0 0 0 Past Encounters Encounter ID Performer Location Encounter Start Date Encounter Closed Date Diagnosis/Indication Diagnosis SNOMED-CT Code Diagnosis ICD10 Code Diagnosis IMO Codes Diagnosis Note [id number] JANKI SOLOMON MD [facility] [address] [id number] 07/23/2024 14:28:40 07/23/2024 16:11:38 Mixed conductive and sensorineural hearing loss of left ear [id number] H90.A32 Audiologic al evaluation results:Ri ght ear:Normal sloping to moderately severe sensorineu ral hearing loss with no measurable word recognitio n.Left ear:Mild sloping to profound mixed hearing loss with no measurable word recognitio n.SRT and WRS could not be measured due to language barriers. Tympanomet ry:Right Ear:Type ALeft Ear:Type Ad Acoustic Reflex Testing: Signal to theRight Ear(crosse d):Absent Signal to theRight Ear(uncros sed): Normal Signal to theLeft Ear(crosse d):Abnorma l Signal to theLeft Ear(uncros sed):Abnor mal Health Concerns Section Related Observation LastModified by Organization Detai ls LastModified Time None Recorded Concern Status LastModified by Organization Details LastModified Time None Recorded Advance Directives Directive None Recorded Payers Insurance Date Sequence Insurance Name Policy Number Policy Saenz Covered Member ID Saenz Member ID Guarantor Name 12/08/2024 1 [facility] (HMO) Alana Saloni Saloni [id number] Alana Saloni 07/23/2024 1 MEDICARE [place]: [employer] Alana Saloni [id number] Alana Saloni Notes Date Note Type Note Provider Name and Address Organization Details Recorded Time 07/23/2024 text/html 1 year of left sided tinnitus and mixed HL. Concerned about the beeping noise . Seen with sister Shikha ELIZONDO MD [address] [place] [address], [phone], [facility] - [facility] 07/23/2024 16:07:12 OBGyn Episode No OBEpisode recorded.
== END 2025-08-31 14:13 | disposition home or self-care (01) ==
LOC: HO.HSM 13:37
PROVIDERS: PCP Internal Medicine; Visit Provider Registered Nurse
DX: G30.9 Alzheimer's disease, unspecified (principal); F02.83 Dementia in other diseases classified elsewhere, unspecified severity, with mood disturbance
CPT/HCPCS: 99214

== ENCOUNTER → 2025-08-31 13:36 | Outpatient (BNVA) | payer MEDICARE, SELFPAY | PROVIDERS: PCP Internal Medicine; Visit Provider Registered Nurse | DX: G30.9 Alzheimer's disease, unspecified (principal); F02.83 Dementia in other diseases classified elsewhere, unspecified severity, with mood disturbance | CPT/HCPCS: 99212 ==